=== PATIENT | female | born 1955 | race Two or more races ===

== ENCOUNTER 2023-10-14 13:46 | Inpatient (IN) | payer OTHER, MEDICAID ==
[~2023-10-14] VITALS: Ht 165.1 cm; Wt 65.6 kg
[~2023-10-14 13:46] MED LIST: GABA-1250 PO
[2023-10-14 14:30] VITALS: PULSE 110; RESP 15; O2SAT 95
[2023-10-14] MEDS: FUROSEMIDE 40 MG/4 ML VIAL IV ONE (14:39)
[2023-10-14] MEDS: MORPHINE SULFATE INJ 2 MG/ml SYRG IV ONE (14:40)
[2023-10-14] MEDS: AMIODARONE BOLUS KIT 100 ML IV ONE (14:40)
[2023-10-14] MEDS: ONDANSETRON HCL 4 MG/2 ML VIAL IV ONE ×2 (14:40→18:50)
[2023-10-14 14:48] LABS: Hematocrit 22.5 % (36.0-46.0); Hemoglobin 7.4 g/dL (12.2-16.2); Mean Corpuscular Hemoglobin 30.2 pg (28.0-32.0); Mean Corpuscular Hgb Conc. 32.8 g/dL (32.0-36.0); Red Blood Cells 2.44 10^6/uL (4.0-5.20); White Blood Cell 5.9 10^3/uL (4.4-10.8)
[2023-10-14 14:50] LABS: Mean Corpuscular Volume 92.1 fL (80.0-100.0); Red Cell Distribution Width 15.2 % (11.8-14.3)
[2023-10-14 15:01] LABS: Chloride 103 mmol/L (98-107); Sodium 139 mmol/L (136-145)
[2023-10-14 15:02] LABS: Anion Gap 8 (5-15); Carbon Dioxide 28 mmol/L (20-30)
[2023-10-14 15:03] LABS: Calcium 7.9 mg/dL (8.5-10.1)
[2023-10-14 15:07] LABS: Glucose 92 mg/dL (74-106)
[2023-10-14 15:08] LABS: BUN/Creatinine Ratio 25.8 (10.0-20.0); Blood Urea Nitrogen 16 mg/dL (9-23)
[2023-10-14 15:16] LABS: Basophils % (manual) 0 (0.0-2.0); Blast Cells 0; Metamyelocytes % 0; Myelocytes % 0; Promyelocytes % 0; Reactive Lymphocytes 0
[2023-10-14 15:18] LABS: Urine Bacteria None Seen /hpf (None Seen)
[2023-10-14 15:18] LABS: Band Neutrophils % (manual) 8; Eosinophils % (manual) 2 (0-7); Lymphocytes % (manual) 24 (10.0-50.0); Monocytes % (manual) 4 (0-12)
[2023-10-14 15:19] LABS: Platelet Estimate Decreased
[2023-10-14 15:29] LABS: Urine Blood TRACE /uL (Negative); Urine Clarity Clear (Clear); Urine Color Yellow (Yellow); Urine Mucus FEW (None Seen); Urine Protein, UAD TRACE (Negative); Urine Urobilinogen 2 mg/dL (Negative); Urine WBC 1 /hpf (0 - 5)
[2023-10-14] MEDS ORDERED: NITROGLYCERIN 0.4 MG SL TAB SL PRN (15:45)
[2023-10-14] MEDS: AMIODARONE 450mg/250ml AE 250 ML IV SCH (16:03)
[2023-10-14] MEDS: POTASSIUM CHL 20 Meq TABLET PO ONE (16:24)
[2023-10-14 16:39] LABS: INR 1.18 (0.9-1.15); Prothrombin Time 12.4 sec (9.3-11.8)
[2023-10-14] MEDS: DIGOXIN (250MCG/ML) 2 ML AMPULE IV ONE (18:20)
[2023-10-14] MEDS: HYDROcodone-ACET 5/325MG TAB PO PRN (18:22)
[2023-10-14] MEDS: NICOTINE 14 MG/24HR TOPICAL PATCH TD SCH (18:23)
[2023-10-14] MEDS: SODIUM CHLORIDE 0.9% 1,000 ML IV ONE (18:49)
[2023-10-14 19:30] VITALS: PULSE 101; RESP 17; O2SAT 96
[2023-10-14] MEDS: MORPHINE SULFATE INJ 2 MG/ml SYRG IV PRN (23:20)
[2023-10-15] VITALS (17 sets, daily range): BP systolic 99–113; BP diastolic 51–97; PULSE 92–108; RESP 15–26; TEMP 97.5–98.5; O2SAT 93–99
[2023-10-15] MEDS: AMIODARONE HCL 200 MG TAB PO ONE (00:40)
[2023-10-15] MEDS: MORPHINE SULFATE INJ 2 MG/ml SYRG IV PRN (03:22)
[2023-10-15 04:48] LABS: White Blood Cell 5.7 10^3/uL (4.4-10.8)
[2023-10-15 04:51] LABS: Hematocrit 20.3 % (36.0-46.0); Mean Corpuscular Hemoglobin 30.6 pg (28.0-32.0); Mean Corpuscular Hgb Conc. 33.6 g/dL (32.0-36.0); Mean Corpuscular Volume 91.1 fL (80.0-100.0); Red Blood Cells 2.23 10^6/uL (4.0-5.20); Red Cell Distribution Width 15.4 % (11.8-14.3)
[2023-10-15 04:53] LABS: Chloride 104 mmol/L (98-107); Potassium 3.7 mmol/L (3.5-5.1); Sodium 138 mmol/L (136-145)
[2023-10-15 04:54] LABS: Anion Gap 5 (5-15); Calcium 7.7 mg/dL (8.7-10.4); Carbon Dioxide 29 mmol/L (20-30)
[2023-10-15 04:57] LABS: Hemoglobin 6.8 g/dL (12.2-16.2)
[2023-10-15 04:59] LABS: BUN/Creatinine Ratio 33.3 (10.0-20.0); Blood Urea Nitrogen 16 mg/dL (9-23); Glucose 93 mg/dL (74-106)
[2023-10-15 05:00] LABS: Basophils % (manual) 0 (0.0-2.0); Blast Cells 0; Eosinophils % (manual) 0 (0-7); Promyelocytes % 0; Reactive Lymphocytes 0
[2023-10-15] MEDS ORDERED: PANT40TA2 PO (05:15)
[2023-10-15] MEDS: ALPRAZolam 0.5 MG TAB PO PRN (05:31)
[2023-10-15 06:00] LABS: Band Neutrophils % (manual) 15; Lymphocytes % (manual) 21 (10.0-50.0); Metamyelocytes % 3; Monocytes % (manual) 6 (0-12); Myelocytes % 6
[2023-10-15 06:01] LABS: Large Platelets FEW; Platelet Estimate Decreased
[2023-10-15] MEDS: PANTOPRAZOLE 40 MG/10 ML VIAL INJ IV SCH (09:57)
[2023-10-15] MEDS: AMIODARONE HCL 200 MG TAB PO SCH (09:57)
[2023-10-15] MEDS ORDERED: NICOTINE 14 MG/24HR TOPICAL PATCH TD SCH (10:00)
[2023-10-15 10:43] LABS: Hematocrit 18.4 % (36.0-46.0)
[2023-10-15] MEDS ORDERED: DICL1GEL59 TOP (11:54)
[2023-10-15] MEDS ORDERED: BACL10TA PO (11:54)
[2023-10-15] MEDS ORDERED: TRAZ-227 PO (11:54)
[2023-10-15] MEDS ORDERED: LORA-483 PO (11:54)
[2023-10-15] MEDS ORDERED: ACET650T12 PO (11:54)
[2023-10-15] MEDS ORDERED: DOCU-94 PO (11:54)
[2023-10-15] MEDS ORDERED: FLUT50SP31 EACHNOSTRI (11:54)
[2023-10-15] MEDS ORDERED: HYDR-4902 PO (11:54)
[2023-10-15] MEDS ORDERED: METO-289 PO (11:54)
[2023-10-15] MEDS: methylPREDNISolone SOD SUCC 125 MG/2 ML VL IV SCH (18:03)
[2023-10-16] VITALS (22 sets, daily range): BP systolic 92–118; BP diastolic 58–71; PULSE 83–107; RESP 15–23; TEMP 97.8–98.9; O2SAT 92–98
[2023-10-16 06:57] LABS: Eosinophils # (auto) 0.1 10 ^3/uL (0-0.8); Hematocrit 21.8 % (36.0-46.0); Hemoglobin 7.3 g/dL (12.2-16.2); Lymphocytes # (auto) 1.2 10 ^3/uL (0.4-5.4); Mean Corpuscular Hemoglobin 30.6 pg (28.0-32.0); Mean Corpuscular Hgb Conc. 33.3 g/dL (32.0-36.0); Mean Corpuscular Volume 91.9 fL (80.0-100.0); Monocytes # (auto) 0.5 10 ^3/uL (0-1.3)
[2023-10-16 06:59] LABS: Basophils # (auto) 0.1 10 ^3/uL (0-0.2); Basophils % (auto) 0.8 % (0.0-2.0); Eosinophils % (auto) 1.3 % (0.0-7.0); Lymphocytes % (auto) 17.9 % (10.0-50.0); Monocytes % (auto) 7.1 % (0.0-12.0); Neutrophils # (auto) 4.9 10 ^3/uL (1.6-8.6); Neutrophils % (auto) 72.9 % (37.0-80.0); Nucleated Red Blood Cells % 0.1 %; Red Blood Cells 2.38 10^6/uL (4.0-5.20); Red Cell Distribution Width 15.9 % (11.8-14.3); White Blood Cell 6.7 10^3/uL (4.4-10.8)
[2023-10-16 07:16] LABS: Chloride 107 mmol/L (98-107); Sodium 140 mmol/L (136-145)
[2023-10-16 07:17] LABS: Anion Gap 8 (5-15); Carbon Dioxide 25 mmol/L (20-30)
[2023-10-16 07:18] LABS: Calcium 7.6 mg/dL (8.7-10.4)
[2023-10-16 07:22] LABS: Glucose 105 mg/dL (74-106)
[2023-10-16 07:23] LABS: BUN/Creatinine Ratio 32.5 (10.0-20.0); Blood Urea Nitrogen 13 mg/dL (9-23)
[2023-10-16 08:09] LABS: INR 1.18 (0.9-1.15); Prothrombin Time 12.4 sec (9.3-11.8)
[2023-10-16] MEDS ORDERED: IPRATROPIUM BROM 0.5 MG/2.5ML INH SOL NEB PRN (12:15)
[2023-10-16] MEDS ORDERED: ALBUTEROL SULF 2.5 MG/0.5ML(0.5%) NEB SOLN NEB PRN (12:15)
[2023-10-16] MEDS: FUROSEMIDE 20 MG/2 ML VIAL IV ONE (12:59)
[2023-10-16 13:00] LABS: Hematocrit 20.2 % (36.0-46.0)
[2023-10-16 13:04] LABS: Hemoglobin 6.4 g/dL (12.2-16.2)
[2023-10-16 19:40] LABS: Hematocrit 32.8 % (36.0-46.0); Hemoglobin 10.9 g/dL (12.2-16.2)
[2023-10-16 19:56] LABS: Alanine Aminotransferase 28 U/L (7-40); Albumin 2.6 g/dL (3.2-4.8); Anion Gap 5 (5-15); Aspartate Aminotransferase 50 U/L (13-40); BUN/Creatinine Ratio 31.6 (10.0-20.0); Bilirubin, Total 0.7 mg/dL (0.2-1.0); Blood Urea Nitrogen 18 mg/dL (9-23); Calcium 7.9 mg/dL (8.5-10.1); Carbon Dioxide 27 mmol/L (20-30); Chloride 107 mmol/L (98-107); Glucose 167 mg/dL (74-106); Potassium 3.8 mmol/L (3.5-5.1); Sodium 139 mmol/L (136-145)
[2023-10-16 19:57] LABS: Total Protein 4.9 g/dL (5.7-8.2)
[2023-10-16 20:04] LABS: Alkaline Phosphatase 1139 U/L (46-116)
[2023-10-17] VITALS (26 sets, daily range): BP systolic 84–121; BP diastolic 47–75; PULSE 83–108; RESP 14–20; TEMP 97.4–98.3; O2SAT 92–96
[2023-10-17 05:12] LABS: Hemoglobin 10.5 g/dL (12.2-16.2); Mean Corpuscular Hemoglobin 30.4 pg (28.0-32.0); Red Cell Distribution Width 14.6 % (11.8-14.3)
[2023-10-17 05:14] LABS: Hematocrit 31.1 % (36.0-46.0); Mean Corpuscular Hgb Conc. 33.9 g/dL (32.0-36.0); Mean Corpuscular Volume 89.9 fL (80.0-100.0); Red Blood Cells 3.46 10^6/uL (4.0-5.20); White Blood Cell 8.2 10^3/uL (4.4-10.8)
[2023-10-17 05:25] LABS: Basophils % (manual) 0 (0.0-2.0); Blast Cells 0; Myelocytes % 0; Promyelocytes % 0
[2023-10-17 05:30] LABS: Alanine Aminotransferase 21 U/L (7-40); Albumin 2.5 g/dL (3.2-4.8); Anion Gap 5 (5-15); Aspartate Aminotransferase 36 U/L (13-40); BUN/Creatinine Ratio 38.2 (10.0-20.0); Blood Urea Nitrogen 21 mg/dL (9-23); Carbon Dioxide 26 mmol/L (20-30); Chloride 107 mmol/L (98-107); Glucose 128 mg/dL (74-106); Sodium 138 mmol/L (136-145)
[2023-10-17 05:31] LABS: Bilirubin, Total 0.6 mg/dL (0.2-1.0); Total Protein 4.7 g/dL (5.7-8.2)
[2023-10-17 05:38] LABS: Alkaline Phosphatase 1065 U/L (46-116)
[2023-10-17 06:06] LABS: Band Neutrophils % (manual) 11; Eosinophils % (manual) 2 (0-7); Lymphocytes % (manual) 13 (10.0-50.0); Metamyelocytes % 1; Monocytes % (manual) 5 (0-12); Platelet Estimate Decreased; Reactive Lymphocytes 2
[2023-10-17] MEDS: MORPHINE SULFATE 4 MG/ML SYR/VIAL IV PRN (10:25)
[2023-10-17] MEDS ORDERED: MORPHINE SULFATE 4 MG/ML SYR/VIAL IV PRN (20:30)
[2023-10-18] VITALS (27 sets, daily range): BP systolic 102–122; BP diastolic 43–76; PULSE 78–105; RESP 14–19; TEMP 97.5–98.6; O2SAT 91–95
[2023-10-18 05:09] LABS: Hemoglobin 9.2 g/dL (12.2-16.2)
[2023-10-18 05:12] LABS: Hematocrit 27.6 % (36.0-46.0); Mean Corpuscular Hemoglobin 30.3 pg (28.0-32.0); Mean Corpuscular Hgb Conc. 33.5 g/dL (32.0-36.0); Mean Corpuscular Volume 90.4 fL (80.0-100.0); Red Blood Cells 3.06 10^6/uL (4.0-5.20); Red Cell Distribution Width 14.8 % (11.8-14.3)
[2023-10-18 05:16] LABS: Chloride 108 mmol/L (98-107); Potassium 3.8 mmol/L (3.5-5.1); Sodium 139 mmol/L (136-145)
[2023-10-18 05:17] LABS: Anion Gap 4 (5-15); Carbon Dioxide 27 mmol/L (20-30)
[2023-10-18 05:18] LABS: Calcium 7.6 mg/dL (8.7-10.4)
[2023-10-18 05:19] LABS: Basophils % (manual) 0 (0.0-2.0); Blast Cells 0; Eosinophils % (manual) 0 (0-7); Myelocytes % 0; Promyelocytes % 0; Reactive Lymphocytes 0
[2023-10-18 05:22] LABS: Glucose 117 mg/dL (74-106)
[2023-10-18 05:23] LABS: Blood Urea Nitrogen 22 mg/dL (9-23)
[2023-10-18 06:10] LABS: Band Neutrophils % (manual) 9; Lymphocytes % (manual) 18 (10.0-50.0); Metamyelocytes % 1; Monocytes % (manual) 11 (0-12)
[2023-10-18 06:11] LABS: Platelet Estimate Decreased
[2023-10-18 06:12] LABS: Large Platelets FEW
[2023-10-18] MEDS: IOHEXOL 350 MG/ML 100ML IJ ONE (08:15)
[2023-10-18 13:07] LABS: Albumin 1.7 g/dL (2.9-4.4); Alpha-1-Globulin 0.4 g/dL (0.0-0.4); Alpha-2-Globulin 0.9 g/dL (0.4-1.0); Gamma Globulin 0.8 g/dL (0.4-1.8); Protein Total Serum 4.7 g/dL (6.0-8.5)
[2023-10-18] MEDS: MORPHINE SULFATE 4 MG/ML SYR/VIAL IV PRN (14:42)
[2023-10-18] MEDS ORDERED: HYDROmorphone HCL 2 MG/ML VL/or syr IV PRN (14:45)
[2023-10-19] VITALS (27 sets, daily range): BP systolic 96–138; BP diastolic 60–90; PULSE 84–103; RESP 12–22; TEMP 97.7–98.4; O2SAT 92–96
[2023-10-19 05:52] LABS: Hematocrit 29.1 % (36.0-46.0); Hemoglobin 9.9 g/dL (12.2-16.2); Mean Corpuscular Hemoglobin 30.8 pg (28.0-32.0); Mean Corpuscular Hgb Conc. 33.8 g/dL (32.0-36.0); Mean Corpuscular Volume 91.2 fL (80.0-100.0); Red Blood Cells 3.19 10^6/uL (4.0-5.20); Red Cell Distribution Width 14.8 % (11.8-14.3)
[2023-10-19 05:54] LABS: Basophils % (manual) 0 (0.0-2.0); Blast Cells 0; Promyelocytes % 0
[2023-10-19 05:55] LABS: Chloride 109 mmol/L (98-107); Potassium 4.1 mmol/L (3.5-5.1); Sodium 139 mmol/L (136-145)
[2023-10-19 05:56] LABS: Anion Gap 3 (5-15); Calcium 7.9 mg/dL (8.7-10.4); Carbon Dioxide 27 mmol/L (20-30)
[2023-10-19 06:01] LABS: BUN/Creatinine Ratio 37.8 (10.0-20.0); Blood Urea Nitrogen 17 mg/dL (9-23); Glucose 112 mg/dL (74-106)
[2023-10-19 06:39] LABS: Band Neutrophils % (manual) 9; Eosinophils % (manual) 2 (0-7); Lymphocytes % (manual) 17 (10.0-50.0); Metamyelocytes % 3; Monocytes % (manual) 5 (0-12); Myelocytes % 5; Platelet Estimate Decreased; Reactive Lymphocytes 2
[2023-10-19 06:40] LABS: Large Platelets FEW
[2023-10-19] MEDS: LORazepam 2MG/ML-1ML VIAL IV ONE (08:00)
[2023-10-19 08:06] LABS: Cancer Antigen (CA) 125 96.5 U/mL (0.0-38.1)
[2023-10-19] MEDS: HYDROmorphone HCL 2 MG/ML VL/or syr IV ONE (11:00)
[2023-10-19] MEDS: MIDAZOLAM HCL 2MG/2ML 2ml VIAL (1mg/ml) IV ONE (11:15)
[2023-10-19] MEDS: LIDOCAINE 2%HCL (LOCAL ANESTH.) INJ 10ml MDV ONE (11:24)
[2023-10-19] MEDS: MIDAZOLAM HCL 2MG/2ML 2ml VIAL (1mg/ml) ONE (11:29)
[2023-10-19] MEDS: fentaNYL CITRATE 100 MCG/2 ML VL ONE (11:30)
[2023-10-19] MEDS: MORPHINE SULF 30 mg ER tab PO SCH (12:48)
[2023-10-19] MEDS: fentaNYL CITRATE 100 MCG/2 ML VL IV ONE (13:04)
[2023-10-19] MEDS: IOHEXOL 300 MG/ML 100ML BOTTLE IJ ONE (14:15)
[2023-10-20] VITALS (24 sets, daily range): BP systolic 90–164; BP diastolic 53–103; PULSE 82–105; RESP 11–22; TEMP 97.6–98.1; O2SAT 90–95
[2023-10-20] MEDS: MORPHINE SULFATE 4 MG/ML SYR/VIAL IV PRN (07:45)
[2023-10-20] MEDS: diphenhdrAMINE HCL 25 MG CAP PO ONE (10:45)
[2023-10-20 11:26] LABS: Basophils # (auto) 0 10 ^3/uL (0-0.2); Eosinophils # (auto) 0.1 10 ^3/uL (0-0.8); Hemoglobin 10.1 g/dL (12.2-16.2); Lymphocytes # (auto) 1.8 10 ^3/uL (0.4-5.4); Monocytes # (auto) 0.8 10 ^3/uL (0-1.3); Monocytes % (auto) 6.8 % (0.0-12.0); Neutrophils # (auto) 8.7 10 ^3/uL (1.6-8.6); White Blood Cell 11.4 10^3/uL (4.4-10.8)
[2023-10-20 11:27] LABS: Basophils % (auto) 0.3 % (0.0-2.0); Eosinophils % (auto) 0.9 % (0.0-7.0); Hematocrit 30.5 % (36.0-46.0); Mean Corpuscular Hemoglobin 30.4 pg (28.0-32.0); Mean Corpuscular Hgb Conc. 33.1 g/dL (32.0-36.0); Mean Corpuscular Volume 91.8 fL (80.0-100.0); Nucleated Red Blood Cells % 0.2 %; Red Blood Cells 3.32 10^6/uL (4.0-5.20); Red Cell Distribution Width 14.9 % (11.8-14.3)
[2023-10-20 11:48] LABS: Alanine Aminotransferase 30 U/L (7-40); Albumin 2.8 g/dL (3.2-4.8); Alkaline Phosphatase 949 U/L (46-116); Anion Gap 5 (5-15); Aspartate Aminotransferase 41 U/L (13-40); BUN/Creatinine Ratio 32.7 (10.0-20.0); Bilirubin, Total 0.5 mg/dL (0.2-1.0); Blood Urea Nitrogen 18 mg/dL (9-23); Carbon Dioxide 25 mmol/L (20-30); Chloride 109 mmol/L (98-107); Glucose 159 mg/dL (74-106); Potassium 4.2 mmol/L (3.5-5.1); Sodium 139 mmol/L (136-145); Total Protein 4.9 g/dL (5.7-8.2)
[2023-10-21] VITALS (12 sets, daily range): BP systolic 93–139; BP diastolic 62–91; PULSE 79–98; RESP 10–19; TEMP 97.7–98.5; O2SAT 92–96
[2023-10-21 10:49] LABS: Hematocrit 28.9 % (36.0-46.0); Hemoglobin 9.7 g/dL (12.2-16.2); Mean Corpuscular Hgb Conc. 33.8 g/dL (32.0-36.0); Red Blood Cells 3.14 10^6/uL (4.0-5.20); Red Cell Distribution Width 15.2 % (11.8-14.3); White Blood Cell 10.6 10^3/uL (4.4-10.8)
[2023-10-21 10:53] LABS: Basophils % (manual) 0 (0.0-2.0); Blast Cells 0; Eosinophils % (manual) 0 (0-7); Promyelocytes % 0
[2023-10-21 11:00] LABS: Alanine Aminotransferase 31 U/L (7-40); Albumin 2.5 g/dL (3.2-4.8); Alkaline Phosphatase 829 U/L (46-116); Anion Gap 4 (5-15); Aspartate Aminotransferase 41 U/L (13-40); Blood Urea Nitrogen 20 mg/dL (9-23); Calcium 8.1 mg/dL (8.7-10.4); Carbon Dioxide 25 mmol/L (20-30); Chloride 110 mmol/L (98-107); Glucose 200 mg/dL (74-106); Potassium 3.8 mmol/L (3.5-5.1); Sodium 139 mmol/L (136-145)
[2023-10-21 11:01] LABS: Band Neutrophils % (manual) 18; Bilirubin, Total 0.6 mg/dL (0.2-1.0); Lymphocytes % (manual) 12 (10.0-50.0); Metamyelocytes % 3; Monocytes % (manual) 6 (0-12); Myelocytes % 1; Reactive Lymphocytes 1; Total Protein 4.7 g/dL (5.7-8.2)
[2023-10-21 11:02] LABS: Anisocytosis Slight; Platelet Estimate Markedly Decreased
[2023-10-21] MEDS: FEXOFENADINE HCL 60 MG TAB PO ONE (11:09)
[2023-10-22] VITALS (11 sets, daily range): BP systolic 114–133; BP diastolic 69–74; PULSE 84–88; RESP 16–18; TEMP 97.4–98.2; O2SAT 93–98
[2023-10-22 06:30] LABS: Hematocrit 27.2 % (36.0-46.0); Mean Corpuscular Hemoglobin 30.6 pg (28.0-32.0); Mean Corpuscular Hgb Conc. 33.1 g/dL (32.0-36.0); Mean Corpuscular Volume 92.2 fL (80.0-100.0); Red Blood Cells 2.95 10^6/uL (4.0-5.20); Red Cell Distribution Width 15.2 % (11.8-14.3); White Blood Cell 11.6 10^3/uL (4.4-10.8)
[2023-10-22 06:46] LABS: Basophils % (manual) 0 (0.0-2.0); Blast Cells 0; Eosinophils % (manual) 0 (0-7); Promyelocytes % 0; Reactive Lymphocytes 0
[2023-10-22 06:50] LABS: Alanine Aminotransferase 29 U/L (7-40); Albumin 2.5 g/dL (3.2-4.8); Alkaline Phosphatase 811 U/L (46-116); Anion Gap 4 (5-15); Aspartate Aminotransferase 47 U/L (13-40); Blood Urea Nitrogen 17 mg/dL (9-23); Calcium 8.4 mg/dL (8.7-10.4); Carbon Dioxide 25 mmol/L (20-30); Chloride 110 mmol/L (98-107); Glucose 119 mg/dL (74-106); Potassium 4.3 mmol/L (3.5-5.1); Sodium 139 mmol/L (136-145)
[2023-10-22 06:51] LABS: Bilirubin, Total 0.6 mg/dL (0.2-1.0); Total Protein 4.7 g/dL (5.7-8.2)
[2023-10-22 07:19] LABS: Band Neutrophils % (manual) 31; Lymphocytes % (manual) 19 (10.0-50.0); Metamyelocytes % 1; Monocytes % (manual) 8 (0-12); Myelocytes % 1
[2023-10-22 07:20] LABS: Platelet Estimate Decreased
[2023-10-22] MEDS: methylPREDNISolone SOD SUCC 125 MG/2 ML VL IV SCH (10:42)
[2023-10-22] MEDS: POLYETHYLENE GLYCOL 17 GM PWDR PO PRN (14:42)
[2023-10-23] VITALS (7 sets, daily range): BP systolic 105–134; BP diastolic 59–82; PULSE 62–93; RESP 16–17; TEMP 97.5–98; O2SAT 92–95
[2023-10-23 07:13] LABS: Hematocrit 27.1 % (36.0-46.0); Mean Corpuscular Hemoglobin 30.4 pg (28.0-32.0); Mean Corpuscular Hgb Conc. 33.3 g/dL (32.0-36.0); Mean Corpuscular Volume 91.2 fL (80.0-100.0); Red Blood Cells 2.97 10^6/uL (4.0-5.20); Red Cell Distribution Width 15.1 % (11.8-14.3); White Blood Cell 12.4 10^3/uL (4.4-10.8)
[2023-10-23 07:36] LABS: Alanine Aminotransferase 34 U/L (7-40); Albumin 2.6 g/dL (3.2-4.8); Alkaline Phosphatase 831 U/L (46-116); Anion Gap 3 (5-15); Aspartate Aminotransferase 49 U/L (13-40); BUN/Creatinine Ratio 38.5 (10.0-20.0); Bilirubin, Total 0.7 mg/dL (0.2-1.0); Blood Urea Nitrogen 15 mg/dL (9-23); Calcium 8.3 mg/dL (8.5-10.1); Carbon Dioxide 25 mmol/L (20-30); Chloride 108 mmol/L (98-107); Glucose 99 mg/dL (74-106); Potassium 4.4 mmol/L (3.5-5.1); Sodium 136 mmol/L (136-145); Total Protein 4.7 g/dL (5.7-8.2)
[2023-10-23 07:37] LABS: Band Neutrophils % (manual) 0; Basophils % (manual) 0 (0.0-2.0); Blast Cells 0; Eosinophils % (manual) 0 (0-7); Promyelocytes % 0; Reactive Lymphocytes 0
[2023-10-23 09:09] LABS: Lymphocytes % (manual) 15 (10.0-50.0); Metamyelocytes % 3; Monocytes % (manual) 1 (0-12); Myelocytes % 6; Platelet Estimate Decreased
== END 2023-10-23 17:00 | disposition hospice, home (50) | DRG 543 ==
LOC: ER 13:46 → TELE 16:07 → TELE-CENTR 10-16 04:15 → DOU IN ICU 10-16 13:23 → TELE-EAST 10-21 15:55
PROVIDERS: ADMIT Internal Medicine; ATTEND Student in an Organized Health Care Education/Training Program
PROC: 06HM33Z Insertion of Infusion Device into Right Femoral Vein, Percutaneous Approach (ICD-10-PCS; 2023-10-14)
PROC: 05HB33Z Insertion of Infusion Device into Right Basilic Vein, Percutaneous Approach (ICD-10-PCS; 2023-10-16)
PROC: B54MZZA Ultrasonography of Right Upper Extremity Veins, Guidance (ICD-10-PCS; 2023-10-16)
PROC: 30233N1 Transfusion of Nonautologous Red Blood Cells into Peripheral Vein, Percutaneous Approach (ICD-10-PCS; 2023-10-16)
PROC: 30233R1 Transfusion of Nonautologous Platelets into Peripheral Vein, Percutaneous Approach (ICD-10-PCS; 2023-10-18)
PROC: 07DR3ZX Extraction of Iliac Bone Marrow, Percutaneous Approach, Diagnostic (ICD-10-PCS; principal; 2023-10-19)
DX: C79.52 Secondary malignant neoplasm of bone marrow (principal); C16.9 Malignant neoplasm of stomach, unspecified; D68.59 Other primary thrombophilia; K80.10 Calculus of gallbladder with chronic cholecystitis without obstruction; I48.0 Paroxysmal atrial fibrillation; G89.3 Neoplasm related pain (acute) (chronic); I11.0 Hypertensive heart disease with heart failure; D64.9 Anemia, unspecified; I50.9 Heart failure, unspecified; D69.6 Thrombocytopenia, unspecified; E87.6 Hypokalemia; K80.20 Calculus of gallbladder without cholecystitis without obstruction; K21.9 Gastro-esophageal reflux disease without esophagitis; Z79.1 Long term (current) use of non-steroidal anti-inflammatories (NSAID); Z85.028 Personal history of other malignant neoplasm of stomach
CPT/HCPCS: 10005; 36415; 71045; 71260; 72192; 74177; 76700; 77012; 80048; 80053; 81001; 83615; 83735; 83880; 84155; 84165; 84484; 85007; 85014; 85018; 85025; 85027; 85045; 85049; 85384; 85610; 86300; 86301; 86304; 86850; 86880; 86900; 86901; 86920; 87081; 87086; 93005; 93306; 96365; 96375; 97110; 97116; 97163; 97530; C9113; G0378; J2001; J2250; J2405